=== PATIENT | female | born 1960 | race Caucasian/White ===

== ENCOUNTER → 2016-11-09 | Outpatient (CLI) | payer BC ==
--- NOTE | ~2016-11-09 | CT2 ---
[facility] A Service of [facility] RADIOLOGY TEXT RESULTS PATIENT: KIMBER [facility]EPEDA [facility] [id number] : 62 UNIT #: [id number] AGE: [address]: Vasile Hahn MD SEX: F ORDER DR: [id number] [facility] [address] [place], [place] [address] [id number] O MR#: [id number] [facility] #: [id number] NAME: KIMBER ZEPEDA : 1960 SEX: F STUDY DATE/TIME: 11/09/2016 12:42 UNIT: [facility] ROOM: STUDY DESCRIPTION: CT Abd and Pelv W Cont Attending Physician: Vasile Hahn M.D. Ordering Physician: Vasile Hahn M.D. Primary Care Physician: Vasile Hahn M.D. MEDICAL IMAGING REPORT This report is preliminary unless electronic signature is present EXAM CT scan of the abdomen and pelvis with contrast 11/09/2016 HISTORY Left side abdominal pain and abdominal bloating for 1.5 half years with fatigue. TECHNIQUE Spiral CT was performed through the abdomen and pelvis following the oral and intravenous contrast administration. This CT exam was performed with one or more of the following radiation dose reduction techniques: automatic exposure control, adjustment of mA and/or kV according to patient size, and iterative reconstruction. FINDINGS Abdomen: There is diffuse fatty infiltration of the liver. Calcified granulomas are seen in the spleen. Pancreas and adrenal glands are normal. The gallbladder is surgically absent as per patient history. The kidneys are normal bilaterally. Pelvis findings: The gut, mesenteric and jaime structures are normal. There is no free fluid in the abdomen or pelvis. The lung bases are normal. IMPRESSION 1. Fatty infiltration of the liver. 2. Surgical absence of the gallbladder. Dictated by... Stanley Marcos M.D. THIS IS AN ELECTRONICALLY VERIFIED REPORT Stanley Marcos M.D. at 11/11/2016 6:33 AM [facility] A Service [facility] RADIOLOGY TEXT RESULTS PATIENT: KIMBER ZEPEDA [facility] [id number] : 62 UNIT #: [id number] AGE: [address]: Vasile Hahn MD SEX: F ORDER DR: CORNELIUS/catarina TD: 11/10/2016 14:37 JOB #: [id number] MEDICAL IMAGING REPORT Page 1 of 1 COPY
[2016-11-09 23:31] LABS: POC - CREATININE 1.04 mg/dL (0.44-1.03)
== END | disposition home or self-care (01) ==
LOC: CCAT 10:29
PROVIDERS: Family Medicine
DX: R10.9 Unspecified abdominal pain (principal); R53.83 Other fatigue; K76.0 Fatty (change of) liver, not elsewhere classified; Z90.49 Acquired absence of other specified parts of digestive tract
CPT/HCPCS: 74177; 82565; Q9967